=== PATIENT | male | born 1965 | race African-American/Black ===

== ENCOUNTER → 2020-07-31 | Outpatient (CLI) | payer MEDICARE ==
--- NOTE | 2020-07-31 14:09 | RAD ---
Clinical Indications: CVA. Exam : Carotid Duplex with Grayscale Ultrasound and Spectral and Color Doppler Analysis: PQRS Compliance Statement - Stenosis calculations for CT, MR and conventional angiography are based u arpan measurement of the distal ICA diameter in accordance with the NASCET methodology. Stenosis calcu lations for carotid ultrasound studies are derived from validated velocity criteria which are known t o correlate with the NASCET methodology. Comparison study: None available. Findings: The common, internal and external carotid arteries were examined by grayscale, color and s pectral Doppler ultrasound. There is no evidence of significant atherosclerotic disease or hemodynam ically significant stenosis in the visualized vessels. Flow in both vertebral arteries was antegrade and normal. The following are the velocities and ratios in the carotid arteries on both sides: RIGHT ICA PV: 59cm/sec RIGHT CCA PV: 117cm/sec RIGHT ICA ED: 14cm/sec RIGHT IC/CCPV: 0.52 RIGHT VERTEBRAL: antegrade flow RIGHT % STENOSIS: No hemodynamically significant stenosis. LEFT ICA PV: 101cm/sec LEFT CCA PV: 85cm/sec LEFT ICA ED: 20cm/sec LEFT IC/CCPV: 1.3 LEFT VERTEBRAL: antegrade flow LEFT % STENOSIS: No hemodynamically significant stenosis <50% ICA Stenosis: PSV < 125cm/s (EDV < 40cm/s; SVR < 2.0) 50-69% ICA Stenosis: PSV < 125-229cm/s (EDV 40-99cm/s; SVR 2.0-3.9) >70% ICA Stenosis: PSV > 230cm/s (EDV >100cm/s; SVR >4.0) Impression: Minimal atherosclerotic plaque with no hemodynamically significant stenosis in the carot id or vertebral arteries in the neck.. Electronically signed by: Kathleen Florez MD (07/31/2020 2:07 PM) [id number]
== END ==
LOC: US 12:54
PROVIDERS: ATTEND Specialist
DX: I65.23 Occlusion and stenosis of bilateral carotid arteries (principal); I63.9 Cerebral infarction, unspecified
CPT/HCPCS: 93880